=== PATIENT | male | born 2005 | race Two or more races ===

== ENCOUNTER → 2025-01-04 | Outpatient (CLI) | payer MEDICAID, SELFPAY ==
--- NOTE | 2025-01-04 12:47 | XR_ITS ---
Examination: PA lateral chest 2 views TECHNIQUE: Upright PA lateral chest 2 views Date and time: January 04, 2025 12:51 PM Comparison June 30, 2008 INDICATIONS: Coughing shortness breath beginning one month ago. FINDINGS: Normal heart size. The lungs are clear. The osseous structures are intact IMPRESSION: No active disease.
== END | disposition home or self-care (01) ==
PROVIDERS: PCP Internal Medicine
DX: R05.8 Other specified cough (principal)
CPT/HCPCS: 71046

== ENCOUNTER → 2025-04-11 | Outpatient (CLI) | payer MEDICAID, SELFPAY ==
--- NOTE | 2025-04-11 15:45 | XR_ITS ---
EXAMINATION: Right knee 2 views TECHNIQUE: 1. AP lateral right knee 2 views Date and time: April 11, 2025 1543 hours INDICATIONS: Right knee pain beginning 1 month ago. FINDINGS: No fracture or dislocation Moderate to large knee effusion IMPRESSION: Moderate to large right pleural effusion, seen with internal derangement of the knee
== END | disposition home or self-care (01) ==
LOC: CDIM 15:39
DX: M25.461 Effusion, right knee (principal); M25.861 Other specified joint disorders, right knee
CPT/HCPCS: 73560